=== PATIENT | female | born 1970 | race Caucasian/White ===

== ENCOUNTER → 2017-05-30 | Day surgery (SDC) | payer BC ==
[~2017-05-30] VITALS: Ht 165.1 cm; Wt 104.8 kg
[~2017-05-30] MED LIST: ACETAMINOPHEN/HYDROcodone 325 MG/5 MG TAB PO PRN; APREPITANT 40 MG CAP ONE; BACITRACIN TOP OINT 15 GM TUBE ONE; BUPIVACAINE/EPINEPHRINE 0.25% 50 ML VIAL ONE; CEFAZOLIN INJ 2,000 MG in SODIUM CHLORIDE 0.9% INJ 100 ML IV SCH; CHLORHEXIDINE GLUCONATE 2 % 1 PACK (2 CLOTHS) TOPICAL PRN; DEXAMETHASONE SOD PHOS 4 MG/ML VIAL IV ONE; DO NOT ADM ANY ANTICOAGULANT DRUGS PRN; LACTATED RINGER'S 1000 ML IV PRN; LIDOCAINE HCL 1% PF 5 ML SYRINGE OTHER ONE; METOPROLOL TARTRATE 25 MG TAB PO PRN; MIDAZOLAM HCL 2 MG/2 ML VIAL ONE; NEXI40CA PO; ONDANSETRON HCL 4 MG/2 ML VIAL IV ONE; PROPOFOL 200 MG/20 ML AMP IV ONE; SODIUM CHLORID 0.9% 500 ML IV PRN; SODIUM CHLORIDE 0.9% INJ 100 ML ONE; ceFAZolin INJ 1,000 MG VIAL ONE; ePHEDrine/NS 25 MG/5 ML SYRINGE IV ONE
[2017-05-30 12:08] VITALS: BP 115/70; PULSE 85; RESP 18; TEMP 97.4; O2SAT 99
--- NOTE | 2017-05-31 17:05 | PD.OP ---
Operative Report Date of Surgery: May 30, 2017 Preoperative Diagnosis: (1) Mallet finger of right finger(s) Postoperative Diagnosis: (1) Mallet finger of right finger(s) Procedure: Closed reduction percutaneous pinning of right middle finger distal phalanx bony mallet (25037) Surgeon: Osmin Vincent Marketing Segment Manager(s): . Operation and Findings: 46-year-old female who presented with a right middle finger bony mallet which she sustained during snow tubing. Risks benefits alternative treatments were discussed including nonoperative treatment. All questions were answered and patient expressed understanding. Patient elected to assume the risks of closed reduction percutaneous pinning. Informed present was obtained. The surgical site was marked in the preoperative holding bay. Antibiotics were given on- call to the operating room. Patient was taken to the operating room. All pressure points were padded. A surgical timeout was performed. After the smooth induction of general anesthesia, the digit was blocked using quarter percent Marcaine with epinephrine. The surgical site was prepped and draped in the usual sterile fashion. The mini C-arm was brought in to confirm the fracture. A axial 0.35 K wire was placed retrograde through the distal phalanx stopping just short of the proximal aspect of the distal phalanx. Following this the finger was maximally flexed and a dorsal blocking 0.35 K wire was placed just proximal to the terminal tendon bony fragment and driven into the head of the middle phalanx, preventing retraction of the bony fragment. Following this the distal phalanx was reduced onto the bony fragment proximally and the longitudinal K wire was driven into the head of the middle phalanx, to complete the fixation. The surgical site was cleaned. The pin sites were capped and dressed with bacitracin and Xeroform followed by fluffs Mavis a volar AlumaFoam splint and Coban. The middle fingertip had excellent color and cap refill at the end of the procedure. The patient was awoken from anesthesia and arrived stable and doing well to the PACU. All needle sponge and instrument counts were correct 2 Osmin Vincent MD May 31, 2017 17:05
== END | disposition home or self-care (01) ==
LOC: HSDC 08:13
PROVIDERS: ATTEND Student in an Organized Health Care Education/Training Program
DX: M20.011 Mallet finger of right finger(s) (principal)
CPT/HCPCS: 01820; 26727; J0690; J1100; J2250; J2405; J3010; J7120; J8501